=== PATIENT | female | born 1945 | race Caucasian/White ===

== ENCOUNTER 2018-01-07 10:44 | Emergency (ER) | payer MEDICARE, OTHER ==
[~2018-01-07] VITALS: Ht 162.6 cm; Wt 72.7 kg
[~2018-01-07 10:44] MED LIST: ALLEGRA-D 60 MG1 TER PO; ASPIRIN E.C. 8181 MG PO; ATENOLOL50 MG PO; CALCIUM CARBON650 M2 PO; FOSAMAX 70MG TA70 MG PO; MULTIPLE VITAMI1 CAP PO; ST. JOHN'S WOR300 M1 PO; ZOCOR40 MG PO
[2018-01-07 10:51] VITALS: TEMP 97.7
[2018-01-07 11:17] LABS: COLLECTION METHOD CLEAN CATCH
[2018-01-07] MEDS ORDERED: HCTZ12.5TAB PO (11:23)
[2018-01-07] MEDS ORDERED: ALLEGRA 180MG180 MG PO (11:24)
[2018-01-07 11:27] LABS: BASO % 0.3 % (0.0-2.0); EOS # 0.1 (0.0-0.7); EOS % 0.4 % (0-4.0); GRAN # 10.8 (1.4-6.5); HEMATOCRIT 41.9 % (37.0-47.0); HEMOGLOBIN 14.2 g/dl (12.5-16.0); LYMPH % 7.8 % (20.0-51.0); MEAN CELL VOLUME 86 fl (80.0-100.0); MEAN CORPUSCULAR HEMOGLOBIN 29 pg (27.0-31.0); MEAN CORPUSCULAR HGB CONC 34 g/dl (33.0-37.0); MEAN PLATELET VOLUME 9.1 fl (7.4-10.4); MONO # 0.5 (0.1-0.6); MONO % 4.2 % (1.7-9.3); PLATELET COUNT 231 K/mm3 (130-400); RED BLOOD COUNT 4.87 M/mm3 (4.10-5.30); REDCELL DISTRIBUTION WIDTH-CV 13.4 % (11.5-14.5)
[2018-01-07 11:35] LABS: AMORPHOUS CRYSTAL Present /uL; PH 8 (5-8); SQUAMOUS EPITHELIAL 0-2 /hpf; URINE APPEARANCE Turbid; URINE BACTERIA None Seen /hpf; URINE BILIRUBIN Negative (NEGATIVE); URINE BLOOD 2+ (NEGATIVE); URINE COLOR Yellow; URINE GLUCOSE Negative (NEGATIVE); URINE KETONE Trace (NEGATIVE); URINE LEUKOCYTE ESTERASE Negative (NEGATIVE); URINE NITRATE Negative (NEGATIVE); URINE PROTEIN(semi-quant) Negative (NEGATIVE); URINE RBC >50 /hpf; URINE UROBILINOGEN Negative (NEGATIVE)
[2018-01-07 11:39] LABS: ALBUMIN 4.6 gm/dL (3.5-5.0); BILIRUBIN,TOTAL 1.6 mg/dL (0.0-1.0); CALCIUM 10.1 mg/dL (8.4-10.2); CREATININE, serum 0.85 mg/dL (0.52-1.25); POTASSIUM 3.5 mmol/L (3.4-5.0); TOTAL PROTEIN 8.4 gm/dL (6.4-8.2)
[2018-01-07] MEDS ORDERED: AVAPRO TAB150 MG/TAB PO (11:41)
[2018-01-07] MEDS ORDERED: LIPITOR20 MG PO (11:41)
[2018-01-07] MEDS ORDERED: ZOFRAN ODT4 MG PO (13:10)
[2018-01-07] MEDS ORDERED: TYLENOL W/COD1 UDTAB PO (13:10)
[2018-01-07] MEDS ORDERED: VOLTAREN 75 DR75 MG PO (13:10)
[2018-01-07 14:14] VITALS: BP 144/72; PULSE 86
== END 2018-01-07 14:20 | disposition home or self-care (01) ==
LOC: COL.ER 10:44
PROVIDERS: Emergency Medicine
DX: N20.2 Calculus of kidney with calculus of ureter (principal); I10 Essential (primary) hypertension; E78.5 Hyperlipidemia, unspecified; Z82.49 Family history of ischemic heart disease and other diseases of the circulatory system; Z90.710 Acquired absence of both cervix and uterus; Z90.49 Acquired absence of other specified parts of digestive tract; Z90.89 Acquired absence of other organs; Z79.82 Long term (current) use of aspirin
CPT/HCPCS: J0696; J1885; J2765; J3010; J7030